=== PATIENT | female | born 1995 | race African-American/Black ===

== ENCOUNTER 2017-01-10 09:13 | Emergency (ER) | payer OTHER ==
[~2017-01-10] VITALS: Ht 160 cm; Wt 67.1 kg
[2017-01-10] MEDS ORDERED: ADV250INH INH (09:19)
[2017-01-10] MEDS ORDERED: ALBU17IN2 INH (09:19)
[2017-01-10] MEDS ORDERED: MONT1GRA PO (09:21)
[2017-01-10] MEDS ORDERED: ALL10TAB27 PO (09:21)
--- NOTE | 2017-01-10 11:31 | REP ---
FOCUSED RIGHT BREAST ULTRASOUND. HISTORY: Lumps in the right breast with redness times 3 weeks. FINDINGS: The right breast is scanned from 12-o'clock position to 3-o'clock position. Heterogeneous fibroglandular background echotexture is seen. There is no evidence of cyst, mass, or abscess. IMPRESSION: Heterogeneous fibroglandular tissue seen. No focal lesions seen. Signed by Farhad Cruz MD 01/10/2017 12:40 P
[2017-01-10 11:32] LABS: CONTROL LINE HCG INT CTR LINE PRESENT
[2017-01-10] MEDS ORDERED: NAPR500T PO (12:09)
[2017-01-10] MEDS ORDERED: NAPROXEN 250 MG TAB PO ONE (12:15)
[2017-01-10 12:23] VITALS: BP 123/76
== END 2017-01-10 12:25 | disposition home or self-care (01) ==
LOC: M ED 09:47
DX: N63 Unspecified lump in breast (principal); N60.11 Diffuse cystic mastopathy of right breast; J45.909 Unspecified asthma, uncomplicated; Z87.891 Personal history of nicotine dependence; Z79.899 Other long term (current) drug therapy; Z79.51 Long term (current) use of inhaled steroids